=== PATIENT | female | born 1950 ===

== ENCOUNTER 2024-10-10 17:58 | Observation (INO) | payer OTHER ==
[~2024-10-10] VITALS: Ht 157.5 cm; Wt 72.9 kg
[2024-10-10 19:11] LABS: BASOPHILS ABSOLUTE AUTO 0.03 K/mm3 (0.00-0.23); BASOPHILS PERCENT AUTO 0 % (0-2); EOSINOPHILS ABSOLUTE AUTO 0.36 K/mm3 (0.00-0.68); EOSINOPHILS PERCENT AUTO 5 % (0-6); Hematocrit 41.1 % (33.0-51.0); Hemoglobin 13.7 g/dL (11.5-16.0); IMMATURE GRAN ABSOLUTE AUTO 0.01 K/mm3 (0.00-0.10); IMMATURE GRAN PERCENT AUTO 0 % (0-1); LYMPHOCYTES ABSOLUTE AUTO 1.92 K/mm3 (0.84-5.20); LYMPHOCYTES PERCENT AUTO 26 % (21-46); MONOCYTES ABSOLUTE AUTO 0.86 K/mm3 (0.16-1.47); MONOCYTES PERCENT AUTO 12 % (4-13); Mean Corpuscular HGB 29.7 pg (26.0-34.0); Mean Corpuscular HGB Conc 33.3 g/dL (31.5-36.5); Mean Corpuscular Volume 89 fL (80-100); Mean Platelet Volume 10.7 fL (9.1-12.4); NEUTROPHILS ABSOLUTE AUTO 4.28 K/mm3 (1.96-9.15); NEUTROPHILS PERCENT AUTO 58 % (41-73); Platelet Count 206 K/mm3 (150-400); RDW Coefficient Variation 15.3 % (11.7-14.2); RDW Standard Deviation 49.1 fL (35.1-46.3); Red Blood Cell Count 4.61 M/mm3 (3.80-5.20); White Blood Cell Count 7.46 K/mm3 (4.00-11.30)
[2024-10-10] MEDS ORDERED: ATORVASTATIN CA40 MG PO ×2 (19:19)
[2024-10-10] MEDS ORDERED: LOSARTAN POTAS100 MG PO (19:19)
[2024-10-10] MEDS ORDERED: DYAZIDE 37.5-21 EACH PO ×2 (19:19)
[2024-10-10] MEDS ORDERED: METF500C PO ×2 (19:20)
[2024-10-10] MEDS ORDERED: EZET10 PO ×2 (19:20)
[2024-10-10] MEDS ORDERED: CELE200 PO ×2 (19:21)
[2024-10-10] MEDS ORDERED: METO50ER PO (19:22)
[2024-10-10] MEDS ORDERED: ARMOUR THYROID PO (19:22)
[2024-10-10] MEDS ORDERED: ALLO100 PO ×2 (19:22)
[2024-10-10] MEDS ORDERED: HYDSUL200 PO (19:23)
[2024-10-10 19:32] LABS: Albumin, Blood 3.6 g/dL (3.4-5.0); Albumin/Globulin Ratio 0.9 (0.8-1.8); Bilirubin, Total 0.7 mg/dL (0.1-1.0); Bun/Creatinine Ratio 36.6 (12.0-20.0); Calcium, Blood 8.9 mg/dL (8.5-10.1); Creatinine, Blood 0.71 mg/dL (0.40-1.00); Potassium, Blood 3.8 mmol/L (3.5-5.5); Total Protein, Blood 7.6 g/dL (6.4-8.2)
[2024-10-10] MEDS ORDERED: NS 1,000 ML IV SCH ×2 (20:05→21:05)
[2024-10-10] MEDS ORDERED: Piperacillin/Tazobactam Sod 3.375 GM in NS 100 ML IV ONE (20:05)
[2024-10-10] MEDS ORDERED: DiphenhydrAMINE HCl 50 MG/ML 1ML Vial IV ONE (20:45)
[2024-10-10] MEDS ORDERED: Ondansetron HCl 2 MG / ML 2ML Vial IV PRN (21:05)
[2024-10-10] MEDS ORDERED: FentaNYL Citrate 50 MCG/ML 2 ML Injection IV PRN (21:10)
[2024-10-10] MEDS ORDERED: FLU VACC TS2024-25(6MOS UP)/PF 45 MCG/0.5 ML SYRINGE IM ONE (21:10)
[2024-10-10] MEDS ORDERED: DiphenhydrAMINE HCl 50 MG/ML 1ML Vial IV PRN (21:10)
[2024-10-10] MEDS ORDERED: Ciprofloxacin 400MG/D5 200ML 200 ML IV SCH (21:27)
[2024-10-10 22:47] VITALS: BP 156/64
[2024-10-10] MEDS ORDERED: TIMDOROPSO BOTHEYES (23:37)
--- NOTE | 2024-10-10 23:57 | NUR ---
ARRIVAL PT NEW ADMIT FROM ER. ARRIVED VIA CORNEL TOBIAS, ON RA, NO TELE. PT AMBULATED TO THE BATHROOM W/ NO ASSISTANCE. ADMISSION COMPLETE, BED IN LOW, CALL LIGHT IN REACH.
[2024-10-11] MEDS ORDERED: MetroNIDAZOLE 500MG/NS 100 ml 100 ML IV SCH
[2024-10-11] MEDS ORDERED: Insulin Human Lispro 100 Units/ML 3ML Syringe SC SCH
[2024-10-11 03:03] VITALS: BP 132/48
[2024-10-11 05:40] LABS: BASOPHILS ABSOLUTE AUTO 0.02 K/mm3 (0.00-0.23); BASOPHILS PERCENT AUTO 0 % (0-2); EOSINOPHILS ABSOLUTE AUTO 0.33 K/mm3 (0.00-0.68); EOSINOPHILS PERCENT AUTO 6 % (0-6); Hematocrit 36.8 % (33.0-51.0); Hemoglobin 11.9 g/dL (11.5-16.0); IMMATURE GRAN ABSOLUTE AUTO 0.02 K/mm3 (0.00-0.10); IMMATURE GRAN PERCENT AUTO 0 % (0-1); LYMPHOCYTES ABSOLUTE AUTO 1.85 K/mm3 (0.84-5.20); LYMPHOCYTES PERCENT AUTO 32 % (21-46); MONOCYTES ABSOLUTE AUTO 0.98 K/mm3 (0.16-1.47); MONOCYTES PERCENT AUTO 17 % (4-13); Mean Corpuscular HGB 29.2 pg (26.0-34.0); Mean Corpuscular HGB Conc 32.3 g/dL (31.5-36.5); Mean Corpuscular Volume 90 fL (80-100); Mean Platelet Volume 11.3 fL (9.1-12.4); NEUTROPHILS ABSOLUTE AUTO 2.66 K/mm3 (1.96-9.15); NEUTROPHILS PERCENT AUTO 46 % (41-73); Platelet Count 166 K/mm3 (150-400); RDW Coefficient Variation 15.3 % (11.7-14.2); RDW Standard Deviation 49.5 fL (35.1-46.3); Red Blood Cell Count 4.08 M/mm3 (3.80-5.20); White Blood Cell Count 5.86 K/mm3 (4.00-11.30)
--- NOTE | 2024-10-11 05:40 | NUR ---
SHIFT SUMMARY VSS. PT SLEPT ON AND OFF T/O THE NIGHT, NO ACUTE EVENTS NOTED. HAS BEEN NPO SINCE 0000 IN ANTICIPATION FOR SURGERY. IVF INFUSING PER EMAR, NO ACUTE EVENTS W/ PRESCRIBED ABX. PT HAS REQUIRED NO PAIN MEDICATION OR NAUSEA MEDICATION. VOIDING W/O DIFFICULTY. THE PATIENT IS CURRENTLY RESTING, IN NO DISTRESS, CALL LIGHT IN REACH.
[2024-10-11 06:02] LABS: Albumin/Globulin Ratio 0.9 (0.8-1.8); Bilirubin, Total 0.5 mg/dL (0.1-1.0); Bun/Creatinine Ratio 37.4 (12.0-20.0); Calcium, Blood 8.3 mg/dL (8.5-10.1); Creatinine, Blood 0.64 mg/dL (0.40-1.00); Globulin, Blood 3.4 g/dL (2.2-4.0); Potassium, Blood 3.8 mmol/L (3.5-5.5); Total Protein, Blood 6.4 g/dL (6.4-8.2)
[2024-10-11 07:31] VITALS: BP 159/73
[2024-10-11] MEDS ORDERED: Metoprolol Succinate 50 MG TABCR PO SCH (09:00)
[2024-10-11] MEDS ORDERED: Losartan Potassium 50 MG Tab PO SCH (09:00)
[2024-10-11] MEDS ORDERED: Atorvastatin 40 MG Tab PO SCH (09:00)
--- NOTE | 2024-10-11 17:11 | NUR ---
PT DISCHARGED AT 1630 AOX4 AND COOPERATIVE OF CARE THROUGHOUT THE DAY. DR BELLO RELEASED PT TO BE DISCHARGED TODAY NOT SURGERY REQUIRED. PT HAS BEEN INDEPENDENT AND DENIED ANY PAIN. NO DISTRESS NOTED AND ALL PAPERWORK REVIEWED. PT ESCORTED OUT TO ENTRANCE VIA WHEEL CHAIR WITH ALL PERSONAL BELONINGS.
[2024-10-14] MEDS ORDERED: Masophen325 MG PO ×2 (09:47)
== END 2024-10-11 16:34 | disposition home or self-care (01) ==
LOC: ER 17:58 → MEDS 17:59 → SURS 21:01 → ER 21:01 → SURS 22:35 → MEDS 22:35
PROVIDERS: Nurse Practitioner Acute Care; Student in an Organized Health Care Education/Training Program; ADMIT Internal Medicine
DX: R93.3 Abnormal findings on diagnostic imaging of other parts of digestive tract (principal); K80.20 Calculus of gallbladder without cholecystitis without obstruction; K42.9 Umbilical hernia without obstruction or gangrene; I10 Essential (primary) hypertension; E11.9 Type 2 diabetes mellitus without complications; E78.5 Hyperlipidemia, unspecified; M32.9 Systemic lupus erythematosus, unspecified; M19.90 Unspecified osteoarthritis, unspecified site; Z79.84 Long term (current) use of oral hypoglycemic drugs; Z79.890 Hormone replacement therapy; Z79.899 Other long term (current) drug therapy; Z88.0 Allergy status to penicillin; Z88.7 Allergy status to serum and vaccine; Z88.1 Allergy status to other antibiotic agents; Z91.013 Allergy to seafood
CPT/HCPCS: 36415; 80053; 82947; 83690; 85025; 93005; 93010; 96374; 96375; 99284-25; A9270; G0378; J0744; J1200; J2543; J7030

== ENCOUNTER 2024-10-12 16:28 | Observation (INO) | payer OTHER ==
[~2024-10-12] VITALS: Ht 157.5 cm; Wt 69.0 kg
[~2024-10-12 16:28] MED LIST: ALLO100 PO; ARMOUR THYROID PO; ATORVASTATIN CA40 MG PO; CELE200 PO; DYAZIDE 37.5-21 EACH PO; EZET10 PO; HYDSUL200 PO; LOSARTAN POTAS100 MG PO; METF500C PO; METO50ER PO; TIMDOROPSO BOTHEYES
[2024-10-12 17:26] LABS: Source, Urine Clean Catch
[2024-10-12 17:31] LABS: Appearance, Urine Clear (Clear); Bilirubin, Urine Neg (Neg); Blood, Urine Neg (Neg); Color, Urine Yellow (P-Yellow); Glucose Qualitative, Urine Neg (Neg); Ketones, Urine Neg (Neg); Leukocyte Esterase, Urine 1+ (Neg); Nitrite, Urine Neg (Neg); Protein, Urine 3+ (Neg); Specific Gravity, Urine 1.025 (1.003-1.022); Urobilinogen, Urine NORM (Normal)
[2024-10-12 17:40] LABS: BASOPHILS ABSOLUTE AUTO 0.02 K/mm3 (0.00-0.23); BASOPHILS PERCENT AUTO 0 % (0-2); EOSINOPHILS ABSOLUTE AUTO 0.32 K/mm3 (0.00-0.68); EOSINOPHILS PERCENT AUTO 3 % (0-6); Hemoglobin 14.8 g/dL (11.5-16.0); IMMATURE GRAN ABSOLUTE AUTO 0.04 K/mm3 (0.00-0.10); IMMATURE GRAN PERCENT AUTO 0 % (0-1); LYMPHOCYTES ABSOLUTE AUTO 0.67 K/mm3 (0.84-5.20); LYMPHOCYTES PERCENT AUTO 7 % (21-46); MONOCYTES ABSOLUTE AUTO 0.47 K/mm3 (0.16-1.47); MONOCYTES PERCENT AUTO 5 % (4-13); Mean Corpuscular HGB 29.5 pg (26.0-34.0); Mean Corpuscular HGB Conc 32.9 g/dL (31.5-36.5); Mean Corpuscular Volume 90 fL (80-100); Mean Platelet Volume 10.4 fL (9.1-12.4); NEUTROPHILS ABSOLUTE AUTO 8.01 K/mm3 (1.96-9.15); NEUTROPHILS PERCENT AUTO 84 % (41-73); Platelet Count 177 K/mm3 (150-400); RDW Coefficient Variation 15.5 % (11.7-14.2); RDW Standard Deviation 50.4 fL (35.1-46.3); Red Blood Cell Count 5.01 M/mm3 (3.80-5.20); White Blood Cell Count 9.53 K/mm3 (4.00-11.30)
[2024-10-12 17:42] LABS: Red Blood Cells, Urine 0-2 /hpf (0-2)
[2024-10-12 17:43] LABS: Amorphous Light (0-Heavy); Bacteria Few /hpf; Squamous Epithelial Cells Rare /hpf (Few)
[2024-10-12 18:02] LABS: Albumin, Blood 3.6 g/dL (3.4-5.0); Albumin/Globulin Ratio 0.8 (0.8-1.8); Bilirubin, Total 0.9 mg/dL (0.1-1.0); Bun/Creatinine Ratio 29.5 (12.0-20.0); C-Reactive Protein, High Sens. 5.84 mg/dL (0.000-3.000); Calcium, Blood 9.3 mg/dL (8.5-10.1); Creatinine, Blood 0.75 mg/dL (0.40-1.00); Globulin, Blood 4.3 g/dL (2.2-4.0); Total Protein, Blood 7.9 g/dL (6.4-8.2)
[2024-10-12] MEDS ORDERED: Ondansetron HCl 2 MG / ML 2ML Vial IV ONE (18:10)
[2024-10-12] MEDS ORDERED: Ondansetron HCl 2 MG / ML 2ML Vial IV PRN (21:05)
[2024-10-12] MEDS ORDERED: NS 1,000 ML IV SCH (21:05)
[2024-10-12] MEDS ORDERED: Ciprofloxacin 400MG/D5 200ML 200 ML IV SCH (22:00)
[2024-10-12] MEDS ORDERED: MetroNIDAZOLE 500MG/NS 100 ml 100 ML IV SCH (22:00)
[2024-10-12 22:45] VITALS: BP 162/86
[2024-10-13] VITALS (15 sets, daily range): BP systolic 135–171; BP diastolic 60–86
[2024-10-13] MEDS ORDERED: Insulin Human Lispro 100 Units/ML 3ML Syringe SC SCH
[2024-10-13] MEDS ORDERED: Acetaminophen 325 MG TABLET PO PRN (04:25)
--- NOTE | 2024-10-13 05:25 | NUR ---
SHIFT SUMMARY NOC PT A/O X 4 . PLEASANT AND COOPERATIVE WITH CARE. BP SLIGHTLY ELEVATED. ADMIT FROM ED WITH APPENDICITIS, SURGICAL CONSULT WITH DR BELLO PLACED TO ANSWERING SERVICE. PT OVERTON 10/27, WITH GIVEN TYLENOL FOR RELIEF. PAIN RX. PT DID HAVE EPISODE OF NAUSEA AND MEDICATED PER EMAR. PT HAS BEEN NPO SINCE MIDNIGHT TO PREPARE FOR PROBABLE SURGICAL INTERVENTION TODAY. PT HAS NS INFUSING @ 100 ML/HR. PT REFUSING Q6H CBG CHECKS. PT CURRENTLY RESTING WITH BED IN LOWEST POSITION, AND CALL LIGHT WITHIN REACH.
[2024-10-13] MEDS ORDERED: Thyroid 60 MG Tab PO SCH (06:00)
[2024-10-13] MEDS ORDERED: Metoprolol Succinate 50 MG TABCR PO SCH (09:00)
[2024-10-13] MEDS ORDERED: Atorvastatin 40 MG Tab PO SCH (09:00)
[2024-10-13] MEDS ORDERED: Losartan Potassium 50 MG Tab PO SCH (09:00)
--- NOTE | 2024-10-13 10:00 | NUR ---
SHIFT SUMMARY PATIENT ALERT AND INTERACTIVE. PATIENT UP TO BR INDEPENDENTLY. PATIENT STATES THAT SHE IS HAVING INCONTINENCE OF SMALL LIQUID STOOLS. PATIENT STATES ABD PAINFUL WITH PALPATION. NO NAUSA AT THIS TIME. PATIENT REFUSING TO HAVE GLUCOSE CHECKED PER ORDERS. PATIENT TAKEN TO DAY SURGERY VIA GURNEY. PRESENT DURING TRANSFER. PERSONAL BELONGINGS SENT WITH . PATIENT TO POSSIBLY TRANSFER TO SURGICAL FLOOR AFTER SURGERY
[2024-10-13] MEDS ORDERED: Lactated Ringer's 1,000 ML IV SCH (11:00)
[2024-10-13] MEDS ORDERED: Bupivacaine 0.5% HCl 5 MG/ML 30MLVIAL ONE (11:22)
[2024-10-13] MEDS ORDERED: propofoL 20 ML IV ONE (12:29)
[2024-10-13] MEDS ORDERED: FentaNYL Citrate 50 MCG/ML 2 ML Injection ONE (12:30)
[2024-10-13] MEDS ORDERED: Ondansetron HCl 2 MG / ML 2ML Vial ONE (12:37)
[2024-10-13] MEDS ORDERED: Dexamethasone Sod Phos 10 MG/ML 1ML VIAL ONE (12:37)
[2024-10-13] MEDS ORDERED: Rocuronium Bromide 10 MG/ML 5ML Injection IV ONE (12:37)
[2024-10-13] MEDS ORDERED: Phenylephrine HCl 100 MCG/ML-NS 10MLSYR (1MG/10ML) ONE (12:42)
[2024-10-13] MEDS ORDERED: Ondansetron HCl 2 MG / ML 2ML Vial IV PRN (13:00)
[2024-10-13] MEDS ORDERED: FentaNYL Citrate 50 MCG/ML 2 ML Injection IV PRN ×2 (13:00→13:05)
[2024-10-13] MEDS ORDERED: Prochlorperazine Edisylate 10 mg Vial IV PRN (13:00)
[2024-10-13] MEDS ORDERED: HYDROmorphone HCl/Pf 1MG SYR IV PRN ×2 (13:00→13:05)
[2024-10-13] MEDS ORDERED: Albuterol 2.5 MG/3 ML VIAL INH PRN (13:00)
[2024-10-13] MEDS ORDERED: Atropine Sulfate 0.1 MG/ML 10ML SYR IV PRN (13:00)
[2024-10-13] MEDS ORDERED: Labetalol HCL 5 MG/ML 4ML Injection (Single Dose) IV PRN (13:05)
[2024-10-13] MEDS ORDERED: Sugammadex Sodium 200 MG/2ML SDV (100 MG/ML) ONE (13:34)
[2024-10-13] MEDS ORDERED: HYDROcodone 5-APAP 325 TAB PO PRN (14:10)
[2024-10-13] MEDS ORDERED: NS 1,000 ML IV SCH (14:10)
--- NOTE | 2024-10-13 15:15 | NUR ---
ARRIVAL/POST OP NOTE PT IS A/OX4, ALERT, RESPONDING APPROPRIATELY. LAP SITES X4 C/D/I, PT REPORTS PAIN IS TOLERABLE AT THIS TIME. VSS. TOLERATING PO CLEARS AND SNACKS. SCDS IN PLACE. FAMILY AT BEDSIDE. CALL LIGHT IN REACH.
--- NOTE | 2024-10-13 16:56 | NUR ---
SHIFT SUMMARY PT IS PODO FOR LAP APPY. INCISION SITES X4 STILL C/D/I, PT REPORTS PAIN TOLERABLE. TOLERATING PO FLUIDS AND JELLO. FAMILY AT BEDSIDE. SCDS IN PLACE. PT HAS NOT YET BEEN OOB SINCE SURGERY, RESTING IN BED. VSS. NO ACUTE CHANGES SINCE ARRIVAL NOTE. CALL LIGHT IN REACH.
[2024-10-14] VITALS: BP 140/73
[2024-10-14 04:56] VITALS: BP 151/74
--- NOTE | 2024-10-14 06:05 | NUR ---
SHIFT SUMMARY POD 1 LAP APPY. NO ACUTE CHANGES OVERNIGHT. VSS. TOLERATING ORALS, DENIES N/V. VOIDING. PASSING GAS, DENIES BM. STERI STRIPS x4 C/D/I c DRIED SANG DRAINAGE AT UMBILICAL INCISION SITE. PT REPORTS PAIN TOLERABLE. IND IN ROOM. ANTICIPATED D/C LATER TODAY. CALL LIGHT IN REACH, BED IN LOWEST POSITION, WILL REPORT TO DAY RN.
[2024-10-14 06:30] LABS: BASOPHILS ABSOLUTE AUTO 0.01 K/mm3 (0.00-0.23); BASOPHILS PERCENT AUTO 0 % (0-2); EOSINOPHILS PERCENT AUTO 0 % (0-6); Hematocrit 37.1 % (33.0-51.0); Hemoglobin 12.4 g/dL (11.5-16.0); IMMATURE GRAN ABSOLUTE AUTO 0.02 K/mm3 (0.00-0.10); IMMATURE GRAN PERCENT AUTO 0 % (0-1); LYMPHOCYTES PERCENT AUTO 22 % (21-46); MONOCYTES ABSOLUTE AUTO 0.87 K/mm3 (0.16-1.47); MONOCYTES PERCENT AUTO 14 % (4-13); Mean Corpuscular HGB Conc 33.4 g/dL (31.5-36.5); Mean Corpuscular Volume 90 fL (80-100); Mean Platelet Volume 10.8 fL (9.1-12.4); NEUTROPHILS ABSOLUTE AUTO 3.99 K/mm3 (1.96-9.15); NEUTROPHILS PERCENT AUTO 63 % (41-73); Platelet Count 169 K/mm3 (150-400); RDW Coefficient Variation 15.8 % (11.7-14.2); RDW Standard Deviation 51.4 fL (35.1-46.3); Red Blood Cell Count 4.14 M/mm3 (3.80-5.20); White Blood Cell Count 6.29 K/mm3 (4.00-11.30)
[2024-10-14 06:50] LABS: Magnesium, Blood 1.6 mg/dL (1.6-2.4)
[2024-10-14 06:51] LABS: Albumin, Blood 3.1 g/dL (3.4-5.0); Albumin/Globulin Ratio 0.8 (0.8-1.8); Bilirubin, Total 0.7 mg/dL (0.1-1.0); Calcium, Blood 8.5 mg/dL (8.5-10.1); Creatinine, Blood 0.65 mg/dL (0.40-1.00); Globulin, Blood 3.8 g/dL (2.2-4.0); Potassium, Blood 3.5 mmol/L (3.5-5.5); Total Protein, Blood 6.9 g/dL (6.4-8.2)
[2024-10-14 07:08] VITALS: BP 145/84
[2024-10-14] MEDS ORDERED: Masophen325 MG PO (09:47)
--- NOTE | 2024-10-14 10:05 | NUR ---
DISCHARGE PT EDUCATED ON AND RECEIVED PRINTED DISCHARGE INSTRUCTIONS AND VERB AN UNDERSTANDING. NO NEW RX. IV DC'D. PT INDEPENDENTLY GETTING DRESSED AND GATHERING PERSONAL BELONGINGS. PT DISCHARGING HOME WHEN SPOUSE ARRIVES.
== END 2024-10-14 10:00 | disposition home or self-care (01) ==
LOC: ER 16:28 → MEDS 16:29 → SURS 16:29 → MEDS 22:29 → SURS 10-13 14:08
PROVIDERS: Family Medicine; Student in an Organized Health Care Education/Training Program; Surgery; ADMIT Student in an Organized Health Care Education/Training Program
PROC: 0DTJ4ZZ Resection of Appendix, Percutaneous Endoscopic Approach (ICD-10-PCS; principal; 2024-10-13 11:30)
DX: K35.80 Unspecified acute appendicitis (principal); R74.01 Elevation of levels of liver transaminase levels; I10 Essential (primary) hypertension; E11.9 Type 2 diabetes mellitus without complications; E78.5 Hyperlipidemia, unspecified; E03.9 Hypothyroidism, unspecified; K80.20 Calculus of gallbladder without cholecystitis without obstruction; N20.0 Calculus of kidney; M32.9 Systemic lupus erythematosus, unspecified; M19.90 Unspecified osteoarthritis, unspecified site; Z79.84 Long term (current) use of oral hypoglycemic drugs; Z79.890 Hormone replacement therapy; Z79.899 Other long term (current) drug therapy; Z88.0 Allergy status to penicillin; Z88.7 Allergy status to serum and vaccine; Z91.013 Allergy to seafood
CPT/HCPCS: 36415; 74177; 76705; 80053; 81001; 82947; 83605; 83735; 85025; 86141; 87086; 88304; 94760; 96365; 96374; 96374-59; 96375; 96376; 99285-25; A9270; G0378; J0744; J1100; J2371; J2405; J2704; J3010; J7030; J7120; Q9967